=== PATIENT | female | born 1980 | race Caucasian/White ===

== ENCOUNTER 2024-05-05 13:47 | Outpatient (CLI) | payer OTHER | END 2024-05-05 13:48 | disposition home or self-care (01) | LOC: CSHDTY/OP 13:47 | PROVIDERS: ATTEND Nurse Practitioner Family | DX: E66.811 Obesity, class 1 (principal); Z68.32 Body mass index [BMI] 32.0-32.9, adult; I10 Essential (primary) hypertension | CPT/HCPCS: 97802 ==

== ENCOUNTER 2024-06-06 08:58 | Outpatient (CLI) | payer OTHER | END 2024-06-06 08:59 | disposition home or self-care (01) | LOC: CSHDTY/OP 08:58 | PROVIDERS: ATTEND Nurse Practitioner Family | DX: E66.811 Obesity, class 1 (principal); Z68.32 Body mass index [BMI] 32.0-32.9, adult; I10 Essential (primary) hypertension | CPT/HCPCS: 97802 ==